=== PATIENT | male | born 1995 | race Caucasian/White ===

== ENCOUNTER 2019-03-05 23:35 | Emergency (ER) | payer BC, SELFPAY ==
[2019-03-06] MEDS ORDERED: Ketorolac Tromethamine 60 MG/2 ML VIAL ONE (00:04)
[2019-03-06] MEDS ORDERED: HYDROcodone/Acetaminophen 5/325 mg Tablet ONE (00:04)
== END 2019-03-06 00:22 | disposition home or self-care (01) ==
LOC: NAV ERS 23:35
DX: K02.9 Dental caries, unspecified (principal); I10 Essential (primary) hypertension; F41.9 Anxiety disorder, unspecified; F32.9 Major depressive disorder, single episode, unspecified; F17.210 Nicotine dependence, cigarettes, uncomplicated; F17.220 Nicotine dependence, chewing tobacco, uncomplicated; Z79.899 Other long term (current) drug therapy
CPT/HCPCS: 96372; 99282; J1885

== ENCOUNTER 2020-04-06 19:21 | Emergency (ER) | payer SELFPAY ==
[2020-04-06] MEDS ORDERED: Ketorolac Tromethamine 60 MG/2 ML VIAL ONE (20:10)
[2020-04-06] MEDS ORDERED: Acetaminophen 500 MG TAB ONE (20:10)
== END 2020-04-06 20:30 | disposition home or self-care (01) ==
LOC: NAV ERS 19:21
DX: K02.9 Dental caries, unspecified (principal); F41.9 Anxiety disorder, unspecified; F32.9 Major depressive disorder, single episode, unspecified; F90.9 Attention-deficit hyperactivity disorder, unspecified type; F43.10 Post-traumatic stress disorder, unspecified; F17.290 Nicotine dependence, other tobacco product, uncomplicated
CPT/HCPCS: 96372; 99282; J1885

== ENCOUNTER 2021-07-22 14:57 | Emergency (ER) | payer SELFPAY ==
[2021-07-23 00:28] LABS: SARS-CoV-2 PCR by NAA DETECTED (NotDetected)
== END 2021-07-22 15:56 | disposition home or self-care (01) ==
LOC: NAV ERS 14:57
DX: U07.1 COVID-19 (principal); F17.290 Nicotine dependence, other tobacco product, uncomplicated
CPT/HCPCS: 99283; U0003; U0005

== ENCOUNTER 2023-02-07 11:50 | Emergency (ER) | payer OTHER, SELFPAY | END 2023-02-07 12:34 | disposition home or self-care (01) | LOC: NAV ERS 11:50 | DX: S39.011A Strain of muscle, fascia and tendon of abdomen, initial encounter (principal); F17.290 Nicotine dependence, other tobacco product, uncomplicated; X50.0XXA Overexertion from strenuous movement or load, initial encounter | CPT/HCPCS: 99283 ==